=== PATIENT | female | born 1950 | race Two or more races ===

== ENCOUNTER 2024-11-12 23:40 | Emergency (ER) | payer OTHER, MEDICAID ==
[~2024-11-12] VITALS: Ht 170.2 cm; Wt 68.6 kg
[2024-11-13] MEDS: IV NORMAL SALINE 500 ML BAG IV ONE (00:05)
[2024-11-13 00:17] LABS: BASOPHILS # (AUTO) 0.1 K/UL (0.0-0.2); BASOPHILS % (AUTO) 0.8 % (0.0-2.0); EOSINOPHILS # (AUTO) 0.1 K/uL (0.0-0.7); EOSINOPHILS % (AUTO) 1.5 % (0.0-7.0); HEMATOCRIT 35.5 % (31.2-41.9); HEMOGLOBIN 12.1 g/dL (10.9-14.3); LYMPHOCYTES # (AUTO) 2.1 K/uL (0.8-4.8); LYMPHOCYTES % (AUTO) 20.4 % (20.5-51.5); MEAN CORPUSCULAR HEMOGLOBIN 30.8 uug (24.7-32.8); MEAN CORPUSCULAR HGB CONC 34 g/dL (32.3-35.6); MEAN CORPUSCULAR VOLUME 90.6 fL (75.5-95.3); MONOCYTES # (AUTO) 0.8 K/uL (0.1-1.30); MONOCYTES % (AUTO) 8.1 % (0.0-11.0); NEUTROPHILS # (AUTO) 7.1 K/uL (1.8-8.9); NEUTROPHILS % (AUTO) 69.2 % (38.5-71.5); PLATELET COUNT (AUTO) 322 K/uL (179-408); RED BLOOD CELL COUNT(AUTO) 3.92 MIL/uL (3.63-4.92); RED CELL DISTRIBUTION WIDTH 13.5 % (12.3-17.7); WHITE BLOOD COUNT (AUTO) 10.2 K/uL (3.8-11.8)
[2024-11-13 00:18] LABS: DIFFERENTIAL COMMENT 1
[2024-11-13 00:23] LABS: CALCIUM 9.2 mg/dL (8.5-10.1); CARBON DIOXIDE 28 mmol/L (21-32); CHLORIDE 103 mmol/L (98-107); CREATININE 0.6 mg/dL (0.6-1.3); GLUCOSE 131 mg/dL (74-106); POTASSIUM 3.4 mmol/L (3.5-5.1); SODIUM SERUM 139 mmol/L (136-145); UREA NITROGEN, BLOOD 13 mg/dL (7-18)
[2024-11-13 00:26] LABS: MAGNESIUM 1.2 mg/dL (1.8-2.4)
[2024-11-13 00:28] LABS: ALANINE AMINOTRANSFERASE 18 U/L (14-59); ALBUMIN 2.7 g/dL (3.4-5.0); ALKALINE PHOSPHATASE 79 U/L (50-136); ASPARTATE AMINOTRANSFERASE 14 U/L (15-37); BILIRUBIN,DIRECT 0.1 mg/dL (0.0-0.2); BILIRUBIN,TOTAL 0.4 mg/dL (0.2-1.0); C-REACTIVE PROTEIN 11.19 mg/dL (0.00-0.30); TOTAL PROTEIN, SERUM 6.6 g/dL (6.4-8.2)
[2024-11-13] MEDS: MAGNESIUM SULFATE/D5W 100 ML IV SCH (01:11)
[2024-11-13] MEDS: MAGNESIUM OXIDE 400 MG TABLET PO ONE (01:11)
[2024-11-13 02:08] LABS: *BILIRUBIN,URIN NEGATIVE (NEGATIVE); *BLOOD, URINE NEGATIVE (NEGATIVE); *CLARITY,URINE CLEAR (CLEAR); *COLOR,URINE YELLOW (YELLOW); *KETONES,URINE TRACE (NEGATIVE); *PROTEIN,URINE 2+ (NEGATIVE); *UROBILINOGEN,URINE 0.2 E.U./dl (NORMAL); LEUKOCYTE ESTERASE ,URINE 1+ (NEGATIVE); NITRITE, URINE POSITIVE (NEGATIVE); PH,URINE 5.5 (5.0-8.0); UGLUCOSE NEGATIVE (NEGATIVE)
[2024-11-13] MEDS ORDERED: CEFTRIAXONE /D5W 50ML IVPB **ER PYXIS IV ONE (02:17)
[2024-11-13] MEDS: CEFTRIAXONE 1 G in IV DEXTROSE 5% 50 ML IV ONE (02:24)
[2024-11-13 03:12] LABS: BACTERIA,URINE MODERATE /HPF (NONE SEEN); RBC,URINE NONE SEEN /HPF (0-3); SQUAMOUS EPITHELIAL CELL,UR MODERATE /HPF (NONE SEEN)
[2024-11-13 03:13] LABS: MUCUS,URINE MODERATE /LPF (0-FEW)
[2024-11-13] MEDS: DICYCLOMINE HCL 20 MG TABLET PO STA (05:08)
[2024-11-13] MEDS: ACETAMINOPHEN 500 MG TABLET PO ONE (05:09)
[2024-11-13 05:58] VITALS: O2SAT 98
== END 2024-11-13 06:10 | disposition short-term general hospital (02) ==
LOC: ER 23:53
DX: R53.1 Weakness (principal); R44.3 Hallucinations, unspecified; R05.9 Cough, unspecified; E83.42 Hypomagnesemia; I25.2 Old myocardial infarction; Z88.5 Allergy status to narcotic agent; Z20.822 Contact with and (suspected) exposure to COVID-19
CPT/HCPCS: 99285; 71045; 36415; 93005; 96365; 96367; 96361; 87426; 80076; 80048; 81001; 82607; 83735; 85025; 84145; 85730; 86140; 87040 ×2; 87086; 83605; J0696; J3475; J7040; A4606; A4663; A9150